=== PATIENT | male | born 1950 | race Caucasian/White ===

== ENCOUNTER 2021-06-27 10:02 | Emergency (ER) | payer MEDICARE, OTHER ==
[2021-06-27] MEDS ORDERED: SODIUM CHLORIDE 0.9% 500 ML 500 ML IV STA (10:23)
[2021-06-27] MEDS ORDERED: SODIUM CHLORIDE 0.9% 1,000 ML IV STA (10:23)
[2021-06-27] MEDS ORDERED: ONDANSETRON 4 MG/2 ML VIAL IVP STA (10:23)
[2021-06-27] MEDS ORDERED: KETOROLAC 30 MG/ML 1 ML VIAL IVP STA (10:23)
[2021-06-27] MEDS ORDERED: HYDROmorphone 0.5 MG/0.5 ML SYRINGE IVP STA (10:23)
--- NOTE | 2021-06-27 10:26 | ED ---
Abdominal Pain HPI - General Chief Complaint: Abdominal Pain Stated Complaint: kidney stones Time Seen by Provider: 06/27/21 10:11 Source: patient, family, RN notes reviewed Mode of arrival: ambulatory Limitations: no limitations - History of Present Illness Initial Comments: This a 71-year-old male presents emergency for a tumor left flank pain. Patient states pain started on Friday has progressively worsened. He has some urinary frequency no dysuria no hematuria. Patient was seen at PCPs office today and sent over for further evaluation. Patient has no history kidney stones or prior abdominal surgeries no diarrhea no constipation or melena hematochezia. Nothing makes the pain feel better or worse he states pain is getting the point where it's difficult to sleep. Denies fever. - Related Data Home Medications Medication Instructions Recorded Confirmed HYDROcodone/APAP 10-325MG [[place] 1 tab PO QID PRN 05/28/15 06/27/21 10-325] Pregabalin [Lyrica] 150 mg PO BID 05/28/15 06/27/21 ramipriL [Altace] 5 mg PO HS 05/28/15 06/27/21 Previous Rx's Medication Instructions Recorded Cyclobenzaprine [Flexeril] 10 mg PO TID PRN #15 tab 06/27/21 Allergies Allergy/AdvReac Type Severity Reaction Status Date / Time No Known Allergies Allergy Verified 06/27/21 10:50 Review of Systems ROS Statement: Those systems with pertinent positive or pertinent negative responses have been documented in the HPI. ROS Other: All systems not noted in ROS Statement are negative. Past Medical History Past Medical History: Hypertension Additional Past Medical History / Comment(s): back pain, ddd, scoliosis History of Any Multi-Drug Resistant Organisms: None Reported Past Surgical History: Cholecystectomy, Tonsillectomy Additional Past Surgical History / Comment(s): COLONOSCOPY Past Anesthesia/Blood Transfusion Reactions: No Reported Reaction Past Psychological History: No Psychological Hx Reported Smoking Status: Never smoker Past Alcohol Use History: Daily Past Drug Use History: None Reported - Past Family History Father Family Medical History: Cancer General Exam Limitations: no limitations General appearance: alert, in no apparent distress Head exam: Present: atraumatic, normocephalic, normal inspection Eye exam: Present: normal appearance, PERRL, EOMI. Absent: scleral icterus, conjunctival injection, periorbital swelling ENT exam: Present: normal exam, normal oropharynx, mucous membranes moist Neck exam: Present: normal inspection, full ROM. Absent: tenderness, me ningismus, lymphadenopathy Respiratory exam: Present: normal lung sounds bilaterally. Absent: respiratory distress, wheezes, rales, rhonchi, stridor Cardiovascular Exam: Present: regular rate, normal rhythm, normal heart sounds. Absent: systolic murmur, diastolic murmur, rubs, gallop, clicks GI/Abdominal exam: Present: soft, normal bowel sounds. Absent: distended, tenderness, guarding, rebound, rigid Back exam: Present: CVA tenderness (R), CVA tenderness (L) Neurological exam: Present: alert Course Vital Signs 06/27/21 06/27/21 10:03 11:20 Temperature 99.1 F Pulse Rate 69 89 Respiratory 18 16 Rate Blood Pressure 156/86 146/68 O2 Sat by Pulse 94 L 95 Oximetry Medical Decision Making - Medical Decision Making CT does not reveal any acute findings. Labs reviewed no specific findings patient's pain is improved at this pain may be related to muscle skeletal pain. Patient be discharged stable condition return parameters discussed. - Lab Data Result diagrams: 06/27/21 10:30 06/27/21 10:30 Lab Results 06/27/21 06/27/21 06/27/21 Range/Units 10:30 10:30 10:30 WBC 2.0 L (3.8-10.6) k/uL RBC 4.59 (4.30-5.90) m/uL Hgb 14.2 (13.0-17.5) gm/dL Hct 39.1 (39.0-53.0) % MCV 85.2 (80.0-100.0) fL MCH 30.9 (25.0-35.0) pg MCHC 36.3 (31.0-37.0) g/dL RDW 12.3 (11.5-15.5) % Plt Count 157 (150-450) k/uL MPV 7.2 Neutrophils % 72 % Lymphocytes % 18 % Monocytes % 8 % Eosinophils % 0 % Basophils % 0 % Neutrophils # 1.5 (1.3-7.7) k/uL Lymphocytes # 0.4 L (1.0-4.8) k/uL Monocytes # 0.2 (0-1.0) k/uL Eosinophils # 0.0 (0-0.7) k/uL Basophils # 0.0 (0-0.2) k/uL Hyperchromasia Slight Sodium 128 L (137-145) mmol/L Potassium 3.8 (3.5-5.1) mmol/L Chloride 98 (98-107) mmol/L Carbon Dioxide 20 L (22-30) mmol/L Anion Gap 10 mmol/L BUN 13 (9-20) mg/dL Creatinine 0.58 L (0.66-1.25) mg/dL Est GFR (CKD-EPI)AfAm >90 (>60 ml/min/1.73 sqM) Est GFR (CKD-EPI)NonAf >90 (>60 ml/min/1.73 sqM) Glucose 127 H (74-99) mg/dL Calcium 8.4 (8.4-10.2) mg/dL Total Bilirubin 1.1 (0.2-1.3) mg/dL AST 42 (17-59) U/L ALT 28 (4-49) U/L Alkaline Phosphatase 88 (38-126) U/L Total Protein 6.9 (6.3-8.2) g/dL Albumin 3.9 (3.5-5.0) g/dL Amylase 64 (30-110) U/L Lipase 236 (23-300) U/L Urine Color Yellow Urine Appearance Clear (Clear) Urine pH 5.5 (5.0-8.0) Ur Specific [place] 1.033 (1.001-1.035) Urine Protein 1+ H (Negative) Urine Glucose (UA) Negative (Negative) Urine Ketones 2+ H (Negative) Urine Blood Trace H (Negative) Urine Nitrite Negative (Negative) Urine Bilirubin Negative (Negative) Urine Urobilinogen 8.0 (<2.0) mg/dL Ur Leukocyte Esterase Negative (Negative) Urine RBC 1 (0-5) /hpf Urine WBC 2 (0-5) /hpf Urine Mucus Rare H (None) /hpf Disposition Clinical Impression: Flank pain Disposition: HOME SELF-CARE Condition: Stable Instructions (If sedation given, give patient instructions): Flank Pain (ED) Additional Instructions: Please return to the Emergency Department if symptoms worsen or any other concerns. Prescriptions: Cyclobenzaprine [Flexeril] 10 mg PO TID PRN #15 tab PRN Reason: Muscle Spasm Is patient prescribed a controlled substance at d/c from ED?: No Referrals: Kermit Spear MD [Primary Care Provider] - 1-2 days Time of Disposition: 12:14
[2021-06-27 10:53] LABS: Basophils % (A) 0 %; Eosinophils % (A) 0 %; HCT 39.1 % (39.0-53.0); HGB 14.2 gm/dL (13.0-17.5); Hyperchromasia Slight; Lymphocytes # (A) 0.4 k/uL (1.0-4.8); Lymphocytes % (A) 18 %; MCH 30.9 pg (25.0-35.0); MCHC 36.3 g/dL (31.0-37.0); MCV 85.2 fL (80.0-100.0); Mean Platelet Volume 7.2; Monocytes # (A) 0.2 k/uL (0-1.0); Monocytes % (A) 8 %; Neutrophils # (A) 1.5 k/uL (1.3-7.7); Neutrophils % (A) 72 %; Platelet Count 157 k/uL (150-450); RBC 4.59 m/uL (4.30-5.90); RDW 12.3 % (11.5-15.5)
[2021-06-27 11:07] LABS: ALT 28 U/L (4-49); AST 42 U/L (17-59); African American GFR (CKD) >90 (>60 ml/min/1.73 sqM); Albumin 3.9 g/dL (3.5-5.0); Alkaline Phosphatase 88 U/L (38-126); Amylase 64 U/L (30-110); Anion Gap 10 mmol/L; Blood Urea Nitrogen 13 mg/dL (9-20); Calcium 8.4 mg/dL (8.4-10.2); Carbon Dioxide 20 mmol/L (22-30); Chloride 98 mmol/L (98-107); Glucose 127 mg/dL (74-99); Lipase 236 U/L (23-300); Non-African American GFR(CKD) >90 (>60 ml/min/1.73 sqM); Potassium 3.8 mmol/L (3.5-5.1); Sodium 128 mmol/L (137-145); Total Bilirubin 1.1 mg/dL (0.2-1.3); Total Protein 6.9 g/dL (6.3-8.2)
[2021-06-27 11:17] LABS: Appearance,Urine Clear (Clear); Bilirubin,Urine Negative (Negative); Blood,Urine Trace (Negative); Color,Urine Yellow; Glucose,Urine (UA) Negative (Negative); Ketones,Urine 2+ (Negative); Leukocyte Esterase,Urine Negative (Negative); Mucus,Urine Rare /hpf; Nitrite,Urine Negative (Negative); PH, Urine 5.5 (5.0-8.0); Protein,Urine 1+ (Negative); RBC,Urine 1 /hpf (0-5); Specific Gravity,Urine 1.033 (1.001-1.035); WBC,Urine 2 /hpf (0-5)
--- NOTE | 2021-06-27 11:28 | CT ---
EXAMINATION TYPE: CT abdomen pelvis wo con DATE OF EXAM: 06/27/2021 COMPARISON: 06/01/2015 HISTORY: Left flank pain with nausea CT DLP: 897.1 mGycm Automated exposure control for dose reduction was used. TECHNIQUE: Helical acquisition of images was performed from the lung bases through the pelvis. FINDINGS: LUNG BASES: Subsegmental changes involving the lung bases most typical of atelectasis. Small right pl eural effusion. Heart is prominent in size. Small hiatal hernia. LIVER/GB: Postcholecystectomy changes noted. PANCREAS: No significant abnormality is seen. SPLEEN: No significant abnormality is seen. ADRENALS: No significant abnormality is seen. KIDNEYS: No significant abnormality is seen. ADENOPATHY: None visualized. OSSEOUS STRUCTURES: Scoliosis and hypertrophic changes with severe degenerative disc disease at mult iple levels. Chronic appearing wedge fracture thoracolumbar junction. BOWEL: No significant abnormality is seen. OTHER: Atherosclerotic change of the vasculature. Aorta of normal caliber. Nonspecific metallic densi ties in the inguinal canal and pelvis could be related to previous surgery correlate clinically. IMPRESSION: 1. Bilateral basilar atelectasis or infiltrate with small right effusion. 2. Nonspecific abdomen with no evidence of obstruction.
[2021-06-27 12:03] VITALS: RESP 16
[2021-06-27] MEDS ORDERED: ACET/COD 300 MG/30 MG STARTER PACK 6 TAB BTL PO STA (12:15)
[2021-06-27 16:27] VITALS: BP 140/78; PULSE 72; TEMP 99
== END 2021-06-27 12:40 | disposition home or self-care (01) ==
LOC: EC 10:02
DX: R10.9 Unspecified abdominal pain (principal); I10 Essential (primary) hypertension; Z79.899 Other long term (current) drug therapy
CPT/HCPCS: 36415; 80053; 82150; 83690; 85025; 81001; 74176; 99284; 96374; 96375; J2405; J1885; J1170

== ENCOUNTER → 2024-08-04 | Outpatient (CLI) | payer MEDICARE, OTHER ==
[2024-08-04 08:43] VITALS: BP 137/81; PULSE 62; RESP 16; TEMP 97.1
--- NOTE | 2024-08-04 15:14 | P.PAINPG ---
PQRS Measure Charge Sheet Comment: HISTORY OF PRESENT ILLNESS: A 74 yr old male as a referral from Dr Segura presents today w severe and chronic LBP > 1 yr secondary to radiculopathy, spondylosis and facet arthropathy without myelopathy for evaluation. Pt states pain level is provoked at 7 /10 in intensity, intermittent, localized in the lumbar spine, predominantly axial, throbbing in character w occasional shooting pain towards the back of the LEs. Pain is provoked by lifting. Pain is alleviated by PT x 6 wks which ended in 2020, physician guided home stretches daily since 2020, heat, medications (B[place]ro[place], Lyrica, Ibu), CBD oil, repositioning and rest . He has a PT script fr Dr Segura but will not start PT until he finishes a contract job in a few weeks. Oswestry axial pain score at 34. PMH: OA, HTN, Scoliosis PSH: Cholecystectomy, Tonsillectomy, Colonoscopy SH: Never smoker, Daily ETOH use, No illicit drug use FH: Fa- CA All: See list Meds: See list REVIEW OF ORGAN SYSTEMS: CONSTITUTIONAL: No fevers or chills. No recent weight loss. NEUROLOGICAL: + numbness and tingling along the distal extremities. No seizure disorders or headaches. MUSCULOSKELETAL: + pain PSYCHIATRIC: Denies current depression or suicidal thoughts. Physical Examinations : Constitutional : Cooperative , not in acute distress . Neurologic : Cranial nerve II to XII intact. No focal neurological deficits. Psychiatric : alert & oriented x 3. Matching mood & appropriate affect. Judgment & insight intact. Musculoskeletal : Cervical Spine Motor strength in the deltoid and biceps: Normal right side. Normal Left side Motor strength biceps and the wrist extensors: Normal right side . Normal left side Motor strength in the triceps muscle: Normal right side. Normal left side Deep tendon reflexes: Normal at the biceps. Normal at Brachioradialis. Normal at triceps Vertebral body tenderness to deep palpation over Cervical facet loading test: positive bilaterally Spurling test: positive bilaterally Neck distraction test: positive bilaterally Wilver sign: positive bilaterally Lumbar spine Motor strength lower extremities ,thigh and legs 5/5 Right side , 5/5 Left side Deep tendon reflexes : Normal Knee Jerk. Normal Ankle Jerk Vertebral body tenderness over L5 Prieto Test positive Lumbar facet Loading Test: positive Right / positive Left Range of motion of the lumbar spine Flexion 30 degrees, extension 10 degrees Straight Leg Raise test: Left/ Right positive at <30 degrees Sully test: positive right / positive left. Severe tenderness over the Sacroiliac joint on the Right / Left sides Gaenslen test: positive bilaterally Seated flexion test: positive bilate rally. Sacral spine : Severe tenderness over the Sacroiliac joint: right side / left side Range of motion: Flexion of the lumbar spine <60 degrees Range of motion: Extension of the lumbar spine <20 degrees Gaenslen's Test positive Sully test: positive right side / left side Thigh Thrust Test Sacral Thrust Test Imaging: MRI non contrast lumbar spine from 04/08/24 reviewed Assessment/ Plan : L1-S1 radiculopathy, Dextroscoliosis Recommendation of CLAUDY L5-S1 #1 and medication management B[place] 7.5/325mg #90, Lyrica 150mg #60 w 1 RF. Use, side effects, adverse reactions, safe storage discussed. Opiate/ narcotic agreement signed 08/04/24. Risks, benefits of procedure discussed and patient verbalized understanding. Admits to anti- coagulant use or medical history of diabetes. Protocol for discontinuation/ continuation of medications fercho procedure discussed. All questions answered. I have spent greater than 30 minutes on patient care today. Dr Astorga was available by phone for the evaluation of this patient. The time was used to review the medical records including relevant urine studies and Prescription history (MAPs), review of the available imaging, evaluation and examination of the patient, coordination of care with the medical staff and if applicable referring physicians, as well as creation of the medical record - Pain Location Bilateral Lower Back Non-Pharmacological Interventions: Exercise, Heat, Inactivity, Position/Reposition, Sitting Pharmacological Interventions: Epidural, PRN Medication, Scheduled Medication PQRS Narrative: Smoking Status Light tobacco smoker Home Medications: Ambulatory Orders Pregabalin [Lyrica] 150 mg PO BID 05/28/15 ramipriL [Altace] 5 mg PO HS 05/28/15 Cyclobenzaprine [Flexeril] 10 mg PO TID PRN #15 tab 06/27/21 HYDROcodone/APAP 7.5-325MG [[place] 7.5-325] 1 tab PO TID PRN 30 Days #90 tab 08/04/24 HYDROcodone/APAP 7.5-325MG [[place] 7.5-325] 1 tab PO TID PRN 30 Days #90 tab 08/04/24 Pregabalin [Lyrica] 150 mg PO BID 30 Days #60 capsule 08/04/24 Controlled Substance Measures - Controlled Substance Measures Is patient prescribed a controlled substance at discharge?: Yes When asked, does pt state using other controlled substances?: No If prescribed controlled substance>3 days was MAPS reviewed?: Yes If Rx opioid, was Start Talking consent form obtained?: Yes Was information provided regarding opioid addiction?: Yes
== END ==
LOC: PNWHC3 08:06
PROVIDERS: ATTEND Specialist
DX: M41.9 Scoliosis, unspecified (principal); M54.17 Radiculopathy, lumbosacral region; G89.29 Other chronic pain; F17.200 Nicotine dependence, unspecified, uncomplicated
CPT/HCPCS: 99211

== ENCOUNTER → 2024-09-29 | Outpatient (CLI) | payer MEDICARE, OTHER ==
[2024-09-29 08:04] VITALS: BP 121/75; PULSE 62; RESP 16
--- NOTE | 2024-09-29 15:38 | P.PAINPG ---
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 Pt states pain level is provoked at 7 /10 in intensity, intermittent, localized in the lumbar spine, predominantly axial, throbbing in character w occasional shooting pain towards the back of the LEs. Pain is provoked by lifting. Pain is alleviated by PT x 6 wks which ended in 2020, physician guided home stretches daily since 2020, heat, medications, topical, repositioning and rest . He has a PT script fr Dr Segura but will not start PT until he R nondisplaced tarsal bone fracture is healed. Interventional procedures include Medications include [place] 7.5/325mg #90, Lyrica 150mg #60, Ibu, CBD Oil REVIEW OF ORGAN SYSTEMS: CONSTITUTIONAL: No fevers or chills. No recent weight loss. NEUROLOGICAL: + numbness and tingling along the distal extremities. No seizure disorders or headaches. MUSCULOSKELETAL: + pain PSYCHIATRIC: Denies current depression or suicidal thoughts. Physical Examinations : Constitutional : Cooperative , not in acute distress . Neurologic : Cranial nerve II to XII intact. No focal neurological deficits. Psychiatric : alert & oriented x 3. Matching mood & appropriate affect. Judgment & insight intact. Musculoskeletal : Cervical Spine Motor strength in the deltoid and biceps: Normal right side. Normal Left side Motor strength biceps and the wrist extensors: Normal right side . Normal left side Motor strength in the triceps muscle: Normal right side. Normal left side Deep tendon reflexes: Normal at the biceps. Normal at Brachioradialis. Normal at triceps Vertebral body tenderness to deep palpation over Cervical facet loading test: positive bilaterally Spurling test: positive bilaterally Neck distraction test: positive bilaterally Wilver sign: positive bilaterally Lumbar spine +R foot boot Motor strength lower extremities ,thigh and legs 5/5 Right side , 5/5 Left side Deep tendon reflexes : Normal Knee Jerk. Normal Ankle Jerk Vertebral body tenderness over L5 Prieto Test positive Lumbar facet Loading Test: positive Right / positive Left Range of motion of the lumbar spine Flexion 30 degrees, extension 10 degrees Straight Leg Raise test: Left/ Right positive at <30 degrees Sully test: positive right / positive left. Severe tenderness over the Sacroiliac joint on the Right / Left sides Gaenslen test: positive bilaterally Seated flexion test: positive bilaterally. Sacral spine : Severe tenderness over the Sacroiliac joint: right side / left side Range of motion: Flexion of the lumbar spine <60 degrees Range of motion: Extension of the lumbar spine <20 degrees Gaenslen's Test positive Sully test: positive right side / left side Thigh Thrust Test Sacral Thrust Test Imaging: MRI non contrast lumbar spine from 04/08/24 reviewed Assessment/ Plan : L1-S1 radiculopathy, Dextroscoliosis Recommendation medication management. Would benefit from CLAUDY L5-S1 if PT is ineffective. [place] 7.5/325mg #90, Lyrica 150mg #60 w 1 RF. Use, side effects, adverse reactions, safe storage discussed. Opiate/ narcotic agreement signed 08/04/24. All questions answered. I have spent greater than 30 minutes on patient care today. Dr Astorga was available by phone for the evaluation of this patient. The time was used to review the medical records including relevant urine studies and Prescription history (MAPs), review of the available imaging, evaluation and examination of the patient, coordination of care with the medical staff and if applicable referring physicians, as well as creation of the medical record - Pain Location Right Ankle Non-Pharmacological Interventions: Heat, Ice, Inactivity Pharmacological Interventions: PRN Medication, Scheduled Medication PQRS Narrative: Smoking Status Light tobacco smoker Hx Alcohol Use (MH) No Home Medications: Ambulatory Orders ramipriL [Altace] 5 mg PO HS 05/28/15 Cyclobenzaprine [Flexeril] 10 mg PO TID PRN #15 tab 06/27/21 Pregabalin [Lyrica] 150 mg PO BID 30 Days #60 capsule 08/04/24 HYDROcodone/APAP 7.5-325MG [[place] 7.5-325] 1 tab PO TID PRN 30 Days #90 tab 09/29/24 HYDROcodone/APAP 7.5-325MG [[place] 7.5-325] 1 tab PO TID PRN 30 Days #90 tab 09/29/24 Pregabalin [Lyrica] 150 mg PO BID 30 Days #60 cap 09/29/24 Controlled Substance Measures - Controlled Substance Measures Is patient prescribed a controlled substance at discharge?: Yes When asked, does pt state using other controlled substances?: No If prescribed controlled substance>3 days was MAPS reviewed?: Yes
== END ==
LOC: PNWHC3 07:36
PROVIDERS: ATTEND Specialist
DX: M43.17 Spondylolisthesis, lumbosacral region (principal); M41.87 Other forms of scoliosis, lumbosacral region; F17.210 Nicotine dependence, cigarettes, uncomplicated
CPT/HCPCS: 99211

== ENCOUNTER → 2024-11-24 | Outpatient (CLI) | payer MEDICARE ==
[2024-11-24 07:57] VITALS: BP 121/75; PULSE 65; RESP 16; TEMP 97.7
--- NOTE | 2024-11-24 16:46 | P.PAINPG ---
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 Pt states pain level is provoked at 7 /10 in intensity, intermittent, localized in the lumbar spine, predominantly axial, throbbing in character w occasional shooting pain towards the back of the LEs. Pain is provoked by lifting. Pain is alleviated by PT x 1 wks which he is currently in, physician guided home stretches daily since 2020, heat, medications, topical, repositioning and rest . Interventional procedures include Medications include [place] 7.5/325mg #90, Lyrica 150mg #60, Ibu, CBD Oil REVIEW OF ORGAN SYSTEMS: CONSTITUTIONAL: No fevers or chills. No recent weight loss. NEUROLOGICAL: + numbness and tingling along the distal extremities. No seizure disorders or headaches. MUSCULOSKELETAL: + pain PSYCHIATRIC: Denies current depression or suicidal thoughts. Physical Examinations : Constitutional : Cooperative , not in acute distress . Neurologic : Cranial nerve II to XII intact. No focal neurological deficits. Psychiatric : alert & oriented x 3. Matching mood & appropriate affect. Judgment & insight intact. Musculoskeletal : Cervical Spine Motor strength in the deltoid and biceps: Normal right side. Normal Left side Motor strength biceps and the wrist extensors: Normal right side . Normal left side Motor strength in the triceps muscle: Normal right side. Normal left side Deep tendon reflexes: Normal at the biceps. Normal at Brachioradialis. Normal at triceps Vertebral body tenderness to deep palpation over Cervical facet loading test: positive bilaterally Spurling test: positive bilaterally Neck distraction test: positive bilaterally Wilver sign: positive bilaterally Lumbar spine +R foot boot Motor strength lower extremities ,thigh and legs 5/5 Right side , 5/5 Left side Deep tendon reflexes : Normal Knee Jerk. Normal Ankle Jerk Vertebral body tenderness over L5 Prieto Test positive Lumbar facet Loading Test: positive Right / positive Left Range of motion of the lumbar spine Flexion 30 degrees, extension 10 degrees Straight Leg Raise test: Left/ Right positive at <30 degrees Sully test: positive right / positive left. Severe tenderness over the Sacroiliac joint on the Right / Left sides Gaenslen test: positive bilaterally Seated flexion test: positive bilaterally. Sacral spine : Severe tenderness over the Sacroiliac joint: right side / left side Range of motion: Flexion of the lumbar spine <60 degrees Range of motion: Extension of the lumbar spine <20 degrees Gaenslen's Test positive Sully test: positive right side / left side Thigh Thrust Test Sacral Thrust Test Imaging: MRI non contrast lumbar spine from 04/08/24 reviewed Assessment/ Plan : L1-S1 radiculopathy, Dextroscoliosis Recommendation medication management. Would benefit from CLAUDY L5-S1 if PT is ineffective. [place] 7.5/325mg #90, Lyrica 150mg #60 w 1 RF. Use, side effects, adverse reactions, safe storage discussed. UDS collected 11/24/24. Opiate/ narcotic agreement signed 08/04/24. All questions answered. I have spent greater than 30 minutes on patient care today. Dr Astorga was available by phone for the evaluation of this patient. The time was used to review the medical records including relevant urine studies and Prescription history (MAPs), review of the available imaging, evaluation and examination of the patient, coordination of care with the medical staff and if applicable referring physicians, as well as creation of the medical record PQRS Narrative: Smoking Status Light tobacco smoker Hx Alcohol Use (MH) No Home Medications: Ambulatory Orders ramipriL [Altace] 5 mg PO HS 05/28/15 Cyclobenzaprine [Flexeril] 10 mg PO TID PRN #15 tab 06/27/21 Pregabalin [Lyrica] 150 mg PO BID 30 Days #60 capsule 08/04/24 HYDROcodone/APAP 7.5-325MG [[place] 7.5-325] 1 tab PO TID PRN 30 Days #90 tab 11/24/24 HYDROcodone/APAP 7.5-325MG [[place] 7.5-325] 1 tab PO TID PRN 30 Days #90 tab 11/24/24 Pregabalin [Lyrica] 150 mg PO BID 30 Days #60 cap 11/24/24 Controlled Substance Measures - Controlled Substance Measures Is patient prescribed a controlled substance at discharge?: Yes When asked, does pt state using other controlled substances?: No If prescribed controlled substance>3 days was MAPS reviewed?: Yes
== END ==
LOC: PNWHC3 07:28
PROVIDERS: ATTEND Specialist
DX: M47.26 Other spondylosis with radiculopathy, lumbar region (principal); M41.9 Scoliosis, unspecified; F17.210 Nicotine dependence, cigarettes, uncomplicated
CPT/HCPCS: 80307; G0463; 99212

== ENCOUNTER → 2025-01-26 | Outpatient (CLI) | payer MEDICARE ==
[2025-01-26 07:53] VITALS: BP 116/73; PULSE 62; RESP 16; TEMP 36.2
--- NOTE | 2025-01-26 16:09 | P.PAINPG ---
Objective - Vital Signs Vital signs: Intake & Output 01/25/25 01/26/25 01/26/25 18:59 06:59 18:59 Weight 102.058 kg PQRS Measure Charge Sheet Comment: HISTORY OF PRESENT ILLNESS: A 74 yr old male presents today w severe and chronic LBP > 1 yr secondary to radiculopathy, spondylosis and facet arthropathy without myelopathy for evaluation. Pt states pain level is provoked at 7 /10 in intensity, intermittent, localized in the lumbar spine, predominantly axial, throbbing in character w occasional shooting pain towards the back of the LEs. Pain is provoked by lifting. Pain is alleviated by PT x 6 wks which ended in Dec 2024, physician guided home stretches 4 times weekly since Dec 2024, heat, medications, topical, repositioning and rest . Oswestry axial pain score of 32. Interventional procedures include LESIs x4 in the past Medications include Damon 7.5/325mg #90, Lyrica 150mg #60, Ibu, CBD Oil REVIEW OF ORGAN SYSTEMS: CONSTITUTIONAL: No fevers or chills. No recent weight loss. NEUROLOGICAL: + numbness and tingling along the distal extremities. No seizure disorders or headaches. MUSCULOSKELETAL: + pain PSYCHIATRIC: Denies current depression or suicidal thoug hts. Physical Examinations : Constitutional : Cooperative , not in acute distress . Neurologic : Cranial nerve II to XII intact. No focal neurological deficits. Psychiatric : alert & oriented x 3. Matching mood & appropriate affect. Judgment & insight intact. Musculoskeletal : Cervical Spine Motor strength in the deltoid and biceps: Normal right side. Normal Left side Motor strength biceps and the wrist extensors: Normal right side . Normal left side Motor strength in the triceps muscle: Normal right side. Normal left side Deep tendon reflexes: Normal at the biceps. Normal at Brachioradialis. Normal at triceps Vertebral body tenderness to deep palpation over Cervical facet loading test: positive bilaterally Spurling test: positive bilaterally Neck distraction test: positive bilaterally Wilver sign: positive bilaterally Lumbar spine +R foot boot Motor strength lower extremities ,thigh and legs 5/5 Right side , 5/5 Left side Deep tendon reflexes : Normal Knee Jerk. Normal Ankle Jerk Vertebral body tenderness over L5 Prieto Test positive Lumbar facet Loading Test: positive Right / positive Left Range of motion of the lumbar spine Flexion 30 degrees, extension 10 degrees Straight Leg Raise test: Left/ Right positive at <30 degrees Sully test: positive right / positive left. Severe tenderness over the Sacroiliac joint on the Right / Left sides Gaenslen test: positive bilaterally Seated flexion test: positive bilaterally. Sacral spine : Severe tenderness over the Sacroiliac joint: right side / left side Range of motion: Flexion of the lumbar spine <60 degrees Range of motion: Extension of the l umbar spine <20 degrees Gaenslen's Test positive Sully test: positive right side / left side Thigh Thrust Test Sacral Thrust Test Imaging: MRI non contrast lumbar spine from 04/08/24 reviewed Assessment/ Plan : L4-L5 spinal stenosis, L1-S1 radiculopathy, Dextroscoliosis Recommendation medication management. Would benefit from CLAUDY L5-S1 though pt found them temporarily effective in the past. Damon 7.5/325mg #90, Lyrica 150mg #60 w 1 RF. Use, side effects, adverse reactions, safe storage discussed. UDS 11/24/24 reviewed and consistent. Opiate/ narcotic agreement signed 08/04/24. All questions answered. I have spent greater than 30 minutes on patient care today. Dr Astorga was available by phone for the evaluation of this patient. The time was used to review the medical records including relevant urine studies and Prescription history (MAPs), review of the available imaging, evaluation and examination of the patient, coordination of care with the medical staff and if applicable referring physicians, as well as creation of the medical record - Pain Location Bilateral Lower Back Non-Pharmacological Interventions: Chiropractic Treatment, Heat, Home Exercise, Physical Therapy, Position/Reposition, Relaxation Technique, Sitting, Stretching Pharmacological Interventions: PRN Medication, Scheduled Medication, Topical Medication PQRS Narrative: Smoking Status Light tobacco smoker Hx Alcohol Use (MH) No Home Medications: Ambulatory Orders ramipriL [Altace] 5 mg PO HS 05/28/15 Cyclobenzaprine [Flexeril] 10 mg PO TID PRN #15 tab 06/27/21 HYDROcodone/APAP 7.5-325MG [Damon 7.5-325] 1 tab PO TID PRN 30 Days #90 tab 01/26/25 HYDROcodone/APAP 7.5-325MG [Damon 7.5-325] 1 tab PO TID PRN 30 Days #90 tab 07/02/25 Pregabalin [Lyrica] 150 mg PO BID 30 Days #60 cap 01/26/25 Controlled Substance Measures - Controlled Substance Measures Is patient prescribed a controlled substance at discharge?: Yes When asked, does pt state using other controlled substances?: Yes If prescribed controlled substance>3 days was MAPS reviewed?: Yes
== END ==
LOC: PNWHC3 07:35
PROVIDERS: ATTEND Anesthesiology
DX: M47.26 Other spondylosis with radiculopathy, lumbar region (principal); M48.07 Spinal stenosis, lumbosacral region; M41.86 Other forms of scoliosis, lumbar region; F17.210 Nicotine dependence, cigarettes, uncomplicated
CPT/HCPCS: 99211